=== PATIENT | female | born 1950 | race Caucasian/White ===

== ENCOUNTER 2018-02-12 12:10 | Observation (INO) | payer MEDICARE ==
[2018-02-12] MEDS ORDERED: Sodium Chloride 0.9% 1,000 ML IV STA (12:48)
[2018-02-12 12:52] VITALS: BMI 25.4
[2018-02-12 13:02] LABS: BASO # 0.1 K/uL (0.0-0.2); BASO % 0.5 % (0.0-2.0); HEMOGLOBIN 13.1 g/dL (11.0-16.0); LYMPH # 2.3 K/uL (1.0-4.3); LYMPH % 13.7 % (20.0-40.0); MEAN CORPUSCULAR HEMOGLOBIN 30.8 pg (27.0-31.0); MEAN CORPUSCULAR HGB CONC 34.6 g/dL (33.0-37.0); MEAN PLATELET VOLUME 9.5 fL (7.2-11.7); MONO # 0.8 K/uL (0.0-0.8); MONO % 4.5 % (0.0-10.0); NEUT # 13.7 K/uL (1.8-7.0); NEUT % 81.3 % (50.0-75.0); RBC 4.27 Mil/uL (3.80-5.20); RED CELL DISTRIBUTION WIDTH 13.1 % (11.5-14.5); WHITE BLOOD COUNT 16.8 K/uL (4.8-10.8)
[2018-02-12] MEDS ORDERED: Sodium Chloride 0.9% 1,000 ML ONE (13:08)
[2018-02-12 13:09] LABS: PROTHROMBIN TIME 11.7 SECONDS (9.7-12.2)
[2018-02-12 13:13] LABS: ALB/GLOB RATIO 1.2 (1.0-2.1); ALBUMIN 4.2 g/dL (3.5-5.0); CALCIUM 9.7 mg/dl (8.6-10.4)
[2018-02-12 13:22] LABS: CK-MB 0.68 ng/mL (0.0-3.38)
[2018-02-12] MEDS ORDERED: Potassium Chloride 20 mEq ER Tab PO STA (13:29)
[2018-02-12] MEDS ORDERED: Potassium Chloride 20 mEq ER Tab PO ONE ×4 (13:44→20:00)
--- NOTE | 2018-02-12 14:13 | RAD ---
PROCEDURE: CHEST RADIOGRAPH, 1 VIEW HISTORY: SOB COMPARISON: None available. FINDINGS: LUNGS: No focal consolidation or infiltrate in the lungs. PLEURA: No pneumothorax or pleural fluid seen. CARDIOVASCULAR: Normal. OSSEOUS STRUCTURES: No significant abnormalities. VISUALIZED UPPER ABDOMEN: Normal. OTHER FINDINGS: None. IMPRESSION: No evidence of focal infiltrate or consolidation in the lungs.
--- NOTE | 2018-02-12 14:29 | CT ---
PROCEDURE: CT HEAD WITHOUT CONTRAST. HISTORY: syncope, vomiting COMPARISON: None available. TECHNIQUE: Axial computed tomography images were obtained through the head/brain without intravenous contrast. Radiation dose: Total exam DLP = 775.75 mGy-cm. This CT exam was performed using one or more of the following dose reduction techniques: Automated exposure control, adjustment of the mA and/or kV according to patient size, and/or use of iterative reconstruction technique. FINDINGS: HEMORRHAGE: No intracranial hemorrhage. BRAIN: No mass effect or edema. No atrophy or chronic microvascular ischemic changes. VENTRICLES: Unremarkable. No hydrocephalus. CALVARIUM: Unremarkable. PARANASAL SINUSES: Unremarkable as visualized. No significant inflammatory changes. MASTOID AIR CELLS: Unremarkable as visualized. No inflammatory changes. OTHER FINDINGS: None. IMPRESSION: Normal CT of the Head.
[2018-02-12 15:08] LABS: SQUAMOUS EPITHIAL 6 /hpf (0-5); URINE BACTERIA RARE (<OCC); URINE BILIRUBIN NEGATIVE (NEGATIVE); URINE BLOOD NEGATIVE (NEGATIVE); URINE CLARITY Hazy (Clear); URINE COLOR Yellow (YELLOW); URINE GLUCOSE (UA) NORMAL (Normal); URINE LEUKOCYTE ESTERASE 2+ Leu/uL (Negative); URINE PROTEIN NEGATIVE (NEGATIVE); URINE UROBILINOGEN NORMAL mg/dL (0.2-1.0)
--- NOTE | 2018-02-12 15:40 | C.PDOC ---
History Of Present Illness 67-year-old female, presents to the emergency department with complaints of syncopal episode. reports patient was gardening, when he asked her to come inside their home and take a look at a bursted pipe, after which patient experienced an episode of dizziness, that was followed by a syncope. 911 was called and patient was brought to ED for further evaluation. In ER, patient is experiencing episodes of non-bloody/non-bilious vomiting. Denies any chest pain , shortness of breath, headache/injury, neck pain, or any other associated symptoms. No other complaints at this time. Chief Complaint (Nursing): Dizziness/Lightheaded History Per: Patient History/Exam Limitations: no limitations Current Symptoms Are (Timing): Still Present Past Medical History Reviewed: Historical Data, Nursing Documentation, Vital Signs Vital Signs: Last Vital Signs Temp 98.6 F 02/12/18 16:55 Pulse 103 H 02/12/18 16:55 Resp 20 02/12/18 16:55 BP 150/81 02/12/18 16:55 Pulse Ox 98 02/12/18 18:19 Family History: States: No Known Family Hx - Social History Hx Alcohol Use: No Hx Substance Use: No - Immunization History Hx Tetanus Toxoid Vaccination: No Hx Influenza Vaccination: No Hx Pneumococcal Vaccination: No Review Of Systems Constitutional: Negative for: Fever Cardiovascular: Negative for: Chest Pain, Palpitations Respiratory: Negative for: Shortness of Breath Gastrointestinal: Positive for: Nausea, Vomiting Neurological: Positive for: Dizziness, Other (syncope). Negative for: Weakness , Numbness, Headache Physical Exam - Physical Exam Appears: Non-toxic, No Acute Distress, Other (actively vomiting) Skin: Warm, Dry, No Rash Head: Normacephalic Eye(s): bilateral: PERRL Nose: Normal Oral Mucosa: Moist Lips: Normal Appearing Neck: Normal ROM Cardiovascular: Rhythm Regular, No Murmur Respiratory: Normal Breath Sounds, No Accessory Muscle Use Gastrointestinal/Abdominal: Soft, No Tenderness Extremity: Normal ROM, No Deformity, No Swelling Neurological/Psych: Oriented x3, Normal Speech ED Course And Treatment - Laboratory Results Result Diagrams: 02/12/18 12:59 02/12/18 12:59 ECG: Interpreted By Me, Viewed By Me ECG Rhythm: Sinus Rhythm Interpretation Of ECG: Prolonged QT. Rate From EC O2 Sat by Pulse Oximetry: 98 (RA) Pulse Ox Interpretation: Normal - Other Rad CXR X-Ray: Viewed By Me, Read By Radiologist Interpretation: Accession No. : [id number]. Patient Name / ID : TAMIKO FREEDMAN / [id number]. Exam Date : 02/12/2018 12:56:57 ( Approved ). Study Comment : Sex / Age : F / 67Y. Creator : Bety Patton MD. Dictator : Bety Patton MD. Molecular Pathologist : Student Affairs Vice President : Bety Patton MD. Approver2 : Report Date : 02/12/2018 14:11:38. My Comment : . PROCEDURE: CHEST RADIOGRAPH, 1 VIEW. HISTORY: SOB. COMPARISON: None available. FINDINGS: LUNGS: No focal consolidation or infiltrate in the lungs. PLEURA: No pneumothorax or pleural fluid seen. CARDIOVASCULAR: Normal. OSSEOUS STRUCTURES: No significant abnormalities. VISUALIZED UPPER ABDOMEN: Normal. OTHER FINDINGS: None. IMPRESSION: No evidence of focal infiltrate or consolidation in the lungs. - CT Scan/US CT HEAD Other Rad Studies (CT/US): Read By Radiologist, Radiology Report Reviewed CT/US Interpretation: Accession No. : [id number]. Patient Name / ID : TAMIKO FREEDMAN / [id number]. Exam Date : 02/12/2018 13:16:06 ( Approved ). Study Comment : Sex / Age : F / 67Y. Creator : Bety Patton MD. Dictator : Bety Patton MD. Molecular Pathologist : Student Affairs Vice President : Bety Patton MD. Approver2 : Report Date : 02/12/2018 14:28:34. My Comment : . PROCEDURE: CT HEAD WITHOUT CONTRAST. HISTORY: syncope, vomiting. COMPARISON: None available. TECHNIQUE: Axial computed tomography images were obtained through the head/brain without intravenous contrast. Radiation dose: Total exam DLP = 775.75 mGy-cm. This CT exam was performed using one or more of the following dose reduction techniques: Automated exposure control, adjustment of the mA and/or kV according to patient size, and/or use of iterative reconstruction technique. FINDINGS: HEMORRHAGE: No intracranial hemorrhage. BRAIN: No mass effect or edema. No atrophy or chronic microvascular ischemic changes. VENTRICLES: Unremarkable. No hydrocephalus. CALVARIUM: Unremarkable. PARANASAL SINUSES: Unremarkable as visualized. No significant inflammatory changes. MASTOID AIR CELLS: Unremarkable as visualized. No inflammatory changes. OTHER FINDINGS: None. IMPRESSION: Normal CT of the Head. Progress Note: Patients labs reveal hypokalemia. Potassium 3. Elevated BUN and WBCs, Chest XR was done, UA is positive for hyaline cast. Case was discussed with Dr Pantoja, who states to admit patient under hospitalist service. Disposition - Disposition Disposition: HOSPITALIZED Disposition Time: 15:39 Condition: FAIR - Clinical Impression Clinical Impression: Syncope, Hypokalemia - Scribe Statement The provider has reviewed the documentation as recorded by the Scribe (Corinne Berrios) All medical record entries made by the Scribe were at my direction and personally dictated by me. I have reviewed the chart and agree that the record accurately reflects my personal performance of the history, physical exam, medical decision making, and the department course for this patient. I have also personally directed, reviewed, and agree with the discharge instructions and disposition. Decision To Admit - Pt Status Changed To: Hospital Disposition Of: Observation - . Bed Request Type: Telemetry Admitting Physician: Fazal Robins Patient Diagnosis: Syncope, Hypokalemia
--- NOTE | 2018-02-12 17:18 | CP.PCM.HP ---
<Kadie Mahoney - Last Filed: 02/12/18 17:39> History of Present Illness - History of Present Illness History of Present Illness: HPI: Patient is a 67 year old female with past medical history of HTN, HLD, Rosacea, and syncopal episodes, who presents to the ED s/p syncopal episode. Patient says she was outside gardening when her asked her to come look at a leaking pipe in the cold basement. Patient says when he was showing her the pipe she started feeling dizzy so her took her back upstairs and outside to get some fresh air. Patient says she sat down on the front door step and then passed out. witnessed the syncopal episode and caught the patient so she did not hit her head. Patient was unconscious for about 5 seconds before she began to wake back up. Patient says when she woke up she had weakness and numbness in her hands up the her elbows, bilaterally. Patient says she become nauseous and had one episode of nonbloody, nonbilious vomiting when she arrived at the ED. She denies associated diaphoresis, headache, changes in vision or hearing, chest pain, palpitations, SOB, cough, abdominal pain, diarrhea, constipation, hematochezia, melena, leg pain, leg swelling, back pain , and recent travel. Patient also admits to 6 days of dysuria. She denies increased urinary frequency, fever, and chills. PMD: Dr. Pantoja PMH: HTN, HLD, Rosacea, and syncopal episodes Meds: Pravastatin 20 mg daily, Losartan 50 mg daily, Amlodipine 5 mg daily Allergies: NKDA PSH: b/l breast cyst removal, tubal ligation FH: Daughter with lupus, son with scleroderma, mother with HTN/DM/ hyperthyroidism/HLD, brother with throat CA, sister with breast CA, father with HI SH: former smoker (>40 years ago, smoked for 1 year), occasional glass of wine, denies drug use Present on Admission - Present on Admission Any Indicators Present on Admission: No Review of Systems - Review of Systems All systems: reviewed and no additional remarkable complaints except (as per HPI ) Past Patient History - Past Social History Smoking Status: Never Smoked - PSYCHIATRIC Hx Substance Use: No - SURGICAL HISTORY Hx Surgeries: Yes Other/Comment: CYST REMOVED FROM BREAST PER PATIENT - ANESTHESIA Hx Anesthesia: Yes Hx Anesthesia Reactions: No Meds Allergies/Adverse Reactions: Allergies Allergy/AdvReac Type Severity Reaction Status Date / Time No Known Allergies Allergy Verified 02/12/18 12:30 Physical Exam - Constitutional Appears: Non-toxic, No Acute Distress - Head Exam Head Exam: ATRAUMATIC, NORMAL INSPECTION, NORMOCEPHALIC - Eye Exam Eye Exam: EOMI, Normal appearance, PERRL - ENT Exam ENT Exam: Mucous Membranes Moist - Neck Exam Neck exam: Positive for: Normal Inspection - Respiratory Exam Respiratory Exam: Clear to Auscultation Bilateral, NORMAL BREATHING PATTERN - Cardiovascular Exam Cardiovascular Exam: RRR, +S1, +S2, Systolic Murmur (heard throughout all ausculatory carlson ). absent: Bradycardia, Tachycardia - GI/Abdominal Exam GI & Abdominal Exam: Normal Bowel Sounds, Soft. absent: Distended, Tenderness - Extremities Exam Extremities exam: Positive for: normal capillary refill, normal inspection, pedal pulses present. Negative for: calf tenderness, pedal edema - Back Exam Back exam: NORMAL INSPECTION - Neurological Exam Neurological exam: Alert, Normal Gait, Oriented x3 Additional comments: No motorsensory defecit - Psychiatric Exam Psychiatric exam: Normal Affect, Normal Mood - Skin Skin Exam: Dry, Intact, Normal Color, Warm Results - Vital Signs Recent Vital Signs: Last Vital Signs Temp 98.7 F 02/12/18 16:35 Pulse 105 H 02/12/18 16:35 Resp 16 02/12/18 16:35 BP 149/79 02/12/18 16:35 Pulse Ox 98 02/12/18 16:41 - Labs Result Diagrams: 02/12/18 12:59 02/12/18 12:59 Labs: Laboratory Results - last 24 hr 02/12/18 02/12/18 02/12/18 12:24 12:59 12:59 WBC 16.8 H RBC 4.27 Hgb 13.1 Hct 38.0 MCV 89.0 D MCH 30.8 MCHC 34.6 RDW 13.1 Plt Count 269 MPV 9.5 Neut % (Auto) 81.3 H Lymph % (Auto) 13.7 L Brown % (Auto) 4.5 Eos % (Auto) 0.0 Baso % (Auto) 0.5 Neut # (Auto) 13.7 H Lymph # (Auto) 2.3 Brown # (Auto) 0.8 Eos # (Auto) 0.0 Baso # (Auto) 0.1 PT 11.7 INR 1.0 APTT 29 Sodium Potassium Chloride Carbon Dioxide Anion Gap BUN Creatinine Est GFR ( Amer) Est GFR (Non-Af Amer) POC Glucose (mg/dL) 193 H Random Glucose Calcium Total Bilirubin AST ALT Alkaline Phosphatase Total Creatine Kinase CK-MB (Mass) Total Protein Albumin Globulin Albumin/Globulin Ratio Urine Color Urine Clarity Urine pH Ur Specific Wolcott Urine Protein Urine Glucose (UA) Urine Ketones Urine Blood Urine Nitrate Urine Bilirubin Urine Urobilinogen Ur Leukocyte Esterase Urine WBC (Auto) Urine RBC (Auto) Ur Squamous Epith Cells Urine Bacteria Hyaline Casts 02/12/18 02/12/18 12:59 15:09 WBC RBC Hgb Hct MCV MCH MCHC RDW Plt Count MPV Neut % (Auto) Lymph % (Auto) Brown % (Auto) Eos % (Auto) Baso % (Auto) Neut # (Auto) Lymph # (Auto) Brown # (Auto) Eos # (Auto) Baso # (Auto) PT INR APTT Sodium 140 Potassium 3.0 L Chloride 100 Carbon Dioxide 18 L Anion Gap 25 H BUN 28 H Creatinine 1.1 Est GFR ( Amer) 60 Est GFR (Non-Af Amer) 50 POC Glucose (mg/dL) Random Glucose 209 H Calcium 9.7 Total Bilirubin 1.4 H AST 33 ALT 28 Alkaline Phosphatase 98 Total Creatine Kinase 130 CK-MB (Mass) 0.68 Total Protein 7.8 Albumin 4.2 Globulin 3.6 Albumin/Globulin Ratio 1.2 Urine Color Yellow Urine Clarity Hazy Urine pH 7.0 Ur Specific [place] 1.012 Urine Protein Negative Urine Glucose (UA) Normal Urine Ketones 1+ H Urine Blood Negative Urine Nitrate Negative Urine Bilirubin Negative Urine Urobilinogen Normal Ur Leukocyte Esterase 2+ H Urine WBC (Auto) 2 Urine RBC (Auto) 2 Ur Squamous Epith Cells 6 H Urine Bacteria Rare Hyaline Casts 11-20 H Assessment & Plan - Assessment and Plan (Free Text) Plan: Syncopal episode * normotensive * H&H 13.1/38 * WBC 16.8 * CT head: negative for intracranial abnormality * CXR: negative * Dr. Valverde consulted * f/u echo * f/u carotid doppler * f/u BNP * f/u ALEXIS and EKG at 19:00 and 01:00 * f/u TSH/Free T4 * UA: +leuk esterase * f/u urine culture * f/u blood culture Meds/Fluids * Keflex 500 mg PO Q12 * 1/2 NS @ 70 cc/h Systolic ejection murmur * Dr. Valverde consulted, help appreciated * f/u echo Hyperglycemia * Glucose 209 on admission * f/u HbA1c Hypokalemia * 3.0 on admission - Replaced in ED * Given another dose of potassium on the floor * Will follow up morning labs Elevated Total Bilirubin * f/u direct bilirubin * AST/ALT WNL Hypertension * Continue home losartan 50 mg daily * Continue home amlodipine 5 mg daily Hyperlipidemia * On Pravastatin 20 mg daily at home but non formulary so will start Crestor 10 mg daily * f/u lipid panel Prophylaxis * Heparin * GI prophylaxis not indicated <Fazal Robins H - Last Filed: 02/12/18 18:08> Results - Vital Signs Recent Vital Signs: Last Vital Signs Temp 98.7 F 02/12/18 16:35 Pulse 105 H 02/12/18 16:35 Resp 16 02/12/18 16:35 BP 149/79 02/12/18 16:35 Pulse Ox 98 02/12/18 17:14 - Labs Result Diagrams: 02/12/18 12:59 02/12/18 12:59 Labs: Laboratory Results - last 24 hr 02/12/18 02/12/18 02/12/18 12:24 12:59 12:59 WBC 16.8 H RBC 4.27 Hgb 13.1 Hct 38.0 MCV 89.0 D MCH 30.8 MCHC 34.6 RDW 13.1 Plt Count 269 MPV 9.5 Neut % (Auto) 81.3 H Lymph % (Auto) 13.7 L Brown % (Auto) 4.5 Eos % (Auto) 0.0 Baso % (Auto) 0.5 Neut # (Auto) 13.7 H Lymph # (Auto) 2.3 Brown # (Auto) 0.8 Eos # (Auto) 0.0 Baso # (Auto) 0.1 PT 11.7 INR 1.0 APTT 29 Sodium Potassium Chloride Carbon Dioxide Anion Gap BUN Creatinine Est GFR ( Amer) Est GFR (Non-Af Amer) POC Glucose (mg/dL) 193 H Random Glucose Calcium Total Bilirubin AST ALT Alkaline Phosphatase Total Creatine Kinase CK-MB (Mass) Total Protein Albumin Globulin Albumin/Globulin Ratio Urine Color Urine Clarity Urine pH Ur Specific Wol[place] Urine Protein Urine Glucose (UA) Urine Ketones Urine Blood Urine Nitrate Urine Bilirubin Urine Urobilinogen Ur Leukocyte Esterase Urine WBC (Auto) Urine RBC (Auto) Ur Squamous Epith Cells Urine Bacteria Hyaline Casts 02/12/18 02/12/18 12:59 15:09 WBC RBC Hgb Hct MCV MCH MCHC RDW Plt Count MPV Neut % (Auto) Lymph % (Auto) Brown % (Auto) Eos % (Auto) Baso % (Auto) Neut # (Auto) Lymph # (Auto) Brown # (Auto) Eos # (Auto) Baso # (Auto) PT INR APTT Sodium 140 Potassium 3.0 L Chloride 100 Carbon Dioxide 18 L Anion Gap 25 H BUN 28 H Creatinine 1.1 Est GFR ( Amer) 60 Est GFR (Non-Af Amer) 50 POC Glucose (mg/dL) Random Glucose 209 H Calcium 9.7 Total Bilirubin 1.4 H AST 33 ALT 28 Alkaline Phosphatase 98 Total Creatine Kinase 130 CK-MB (Mass) 0.68 Total Protein 7.8 Albumin 4.2 Globulin 3.6 Albumin/Globulin Ratio 1.2 Urine Color Yellow Urine Clarity Hazy Urine pH 7.0 Ur Specific Wol[place] 1.012 Urine Protein Negative Urine Glucose (UA) Normal Urine Ketones 1+ H Urine Blood Negative Urine Nitrate Negative Urine Bilirubin Negative Urine Urobilinogen Normal Ur Leukocyte Esterase 2+ H Urine WBC (Auto) 2 Urine RBC (Auto) 2 Ur Squamous Epith Cells 6 H Urine Bacteria Rare Hyaline Casts 11-20 H Attending/Attestation - Attestation I have personally seen and examined this patient.: Yes I have fully participated in the care of the patient.: Yes I have reviewed all pertinent clinical information: Yes Notes (Text): 02/12/18 17:49 Medical attending: Patient was seen and examined by me. Agree with the above note by the resident The patient also had family members present as well. Patient was ok with family being present in the room. When we saw her she was not in any acute distress. She reported she felt back to her baseline self. She denied chest pain and denied shortness of breath. Also denied dizziness and headache as well. When asked if she becomes dizzy when standing she denied this saying she just walked in the ER and was ok. The family suspects possible this is stress or anxiety related that causes her to have these episodes of syncope. On exam she does have a rather loud mumur that is systolic over the LSB. Also over the aortic area as well. For now will get additional cardiac enzymes, BNP, TSH as well as and 2D echo echo in case there are mitrial or tricupsid She does have a WBC count, we will give abx for the time being but I don't get the sense this could be endocarditis - never the less we are still getting blood cultures as well as the echo. The patient will also have a cardiology evaluation as well. thank you Fazal Robins
[2018-02-12] MEDS: Sodium Chloride 0.45% 1,000 ML IV SCH (19:21)
[2018-02-12 21:14] LABS: HDL CHOLESTEROL 63 mg/dL (30-70)
[2018-02-12 21:25] LABS: CK-MB 0.73 ng/mL (0.0-3.38); LDL CHOLESTEROL 84 mg/dL (0-129)
[2018-02-13 01:49] LABS: ALB/GLOB RATIO 1.1 (1.0-2.1); ALBUMIN 3.7 g/dL (3.5-5.0); ALT/SGPT 25 U/L (9-52); AST/SGOT 30 U/L (14-36); BLOOD UREA NITROGEN 21 mg/dL (7-17); CALCIUM 8.6 mg/dl (8.6-10.4); GFR AFRICAN-AMERICAN > 60; GFR NON-AFRICAN AMERICAN > 60
[2018-02-13 01:59] LABS: CK-MB 0.73 ng/mL (0.0-3.38)
[2018-02-13] MEDS ORDERED: DiphenhydrAMINE 50 mg/ml Inj IVP ONE (03:30)
--- NOTE | 2018-02-13 06:02 | CP.PCM.CON ---
History of Present Illness - History of Present Illness History of Present Illness: Estrella For Consultation: Syncope HPI: Patient is a 67 year old female with past medical history of HTN, HLD, Rosacea, and syncopal episodes, who presents to the ED s/p syncopal episode. Patient says she was outside gardening when her asked her to come look at a leaking pipe in the cold basement. Patient says when he was showing her the pipe she started feeling dizzy so her took her back upstairs and outside to get some fresh air. Patient says she sat down on the front door step and then passed out. witnessed the syncopal episode and caught the patient so she did not hit her head. Patient was unconscious for about 5 seconds before she began to wake back up. Patient says when she woke up she had weakness and numbness in her hands up the her elbows, bilaterally. Patient says she become nauseous and had one episode of nonbloody, nonbilious vomiting when she arrived at the ED. She denies associated diaphoresis, headache, changes in vision or hearing, chest pain, palpitations, SOB, cough, abdominal pain, diarrhea, constipation, hematochezia, melena, leg pain, leg swelling, back pain , and recent travel. Patient also admits to 6 days of dysuria. She denies increased urinary frequency, fever, and chills. PMD: Dr. Pantoja PMH: HTN, HLD, Rosacea, and syncopal episodes Meds: Pravastatin 20 mg daily, Losartan 50 mg daily, Amlodipine 5 mg daily Allergies: NKDA PSH: b/l breast cyst removal, tubal ligation FH: Daughter with lupus, son with scleroderma, mother with HTN/DM/ hyperthyroidism/HLD, brother with throat CA, sister with breast CA, father with AL SH: former smoker (>40 years ago, smoked for 1 year), occasional glass of wine, denies drug use Present on Admission - Present on Admission Any Indicators Present on Admission: No Review of Systems - Review of Systems All systems: reviewed and no additional remarkable complaints except (as per HPI ) Physical Exam - Constitutional Appears: Non-toxic, No Acute Distress - Head Exam Head Exam: ATRAUMATIC, NORMAL INSPECTION, NORMOCEPHALIC - Eye Exam Eye Exam: EOMI, Normal appearance, PERRL - ENT Exam ENT Exam: Mucous Membranes Moist - Neck Exam Neck exam: Positive for: Normal Inspection - Respiratory Exam Respiratory Exam: Clear to Auscultation Bilateral, NORMAL BREATHING PATTERN - Cardiovascular Exam Cardiovascular Exam: RRR, +S1, +S2, Systolic Murmur (heard throughout all ausculatory carlson ). absent: Bradycardia, Tachycardia - GI/Abdominal Exam GI & Abdominal Exam: Normal Bowel Sounds, Soft. absent: Distended, Tenderness - Extremities Exam Extremities exam: Positive for: normal capillary refill, normal inspection, pedal pulses present. Negative for: calf tenderness, pedal edema - Back Exam Back exam: NORMAL INSPECTION - Neurological Exam Neurological exam: Alert, Normal Gait, Oriented x3 Additional comments: No motorsensory defecit - Psychiatric Exam Psychiatric exam: Normal Affect, Normal Mood - Skin Skin Exam: Dry, Intact, Normal Color, Warm Past Patient History - Past Social History Smoking Status: Never Smoked - PSYCHIATRIC Hx Substance Use: No - SURGICAL HISTORY Hx Surgeries: Yes Other/Comment: CYST REMOVED FROM BREAST PER PATIENT - ANESTHESIA Hx Anesthesia: Yes Hx Anesthesia Reactions: No Meds Allergies/Adverse Reactions: Allergies Allergy/AdvReac Type Severity Reaction Status Date / Time No Known Allergies Allergy Verified 02/12/18 12:30 - Medications Medications: Current Medications Amlodipine Besylate (Norvasc) 5 mg PO DAILY [facility] Cephalexin Monohydrate (Keflex) 500 mg PO Q12H [facility] PRN Reason: Protocol Last Admin: 02/13/18 04:26 Dose: 500 mg Heparin Sodium (Porcine) (Heparin) 5,000 units SC Q12 [facility] Last Admin: 02/12/18 22:17 Dose: 5,000 units Sodium Chloride (Sodium Chloride 0.45%) 1,000 mls @ 70 mls/hr IV .[id number] [facility] Last Admin: 02/12/18 19:21 Dose: 70 mls/hr Losartan Potassium (Cozaar) 50 mg PO DAILY [facility] Rosuvastatin Calcium (Crestor) 10 mg PO HS [facility] Last Admin: 02/12/18 22:16 Dose: Not Given Results - Vital Signs Recent Vital Signs: Last Vital Signs Temp 98.1 F 02/13/18 03:28 Pulse 81 02/13/18 04:06 Resp 20 02/13/18 03:28 BP 130/79 02/13/18 03:28 Pulse Ox 98 02/13/18 03:28 - Labs Result Diagrams: 02/12/18 12:59 02/13/18 01:32 Labs: Laboratory Results - last 24 hr 02/12/18 02/12/18 02/12/18 12:24 12:59 12:59 WBC 16.8 H RBC 4.27 Hgb 13.1 Hct 38.0 MCV 89.0 D MCH 30.8 MCHC 34.6 RDW 13.1 Plt Count 269 MPV 9.5 Neut % (Auto) 81.3 H Lymph % (Auto) 13.7 L [place] % (Auto) 4.5 Eos % (Auto) 0.0 Baso % (Auto) 0.5 Neut # (Auto) 13.7 H Lymph # (Auto) 2.3 [place] # (Auto) 0.8 Eos # (Auto) 0.0 Baso # (Auto) 0.1 PT 11.7 INR 1.0 APTT 29 Sodium Potassium Chloride Carbon Dioxide Anion Gap BUN Creatinine Est GFR ( Amer) Est GFR (Non-Af Amer) POC Glucose (mg/dL) 193 H Random Glucose Calcium Phosphorus Magnesium Total Bilirubin AST ALT Alkaline Phosphatase Total Creatine Kinase CK-MB (Mass) Troponin I NT-Pro-B Natriuret Pep Total Protein Albumin Globulin Albumin/Globulin Ratio Triglycerides Cholesterol LDL Cholesterol Direct HDL Cholesterol Urine Color Urine Clarity Urine pH Ur Specific [place] Urine Protein Urine Glucose (UA) Urine Ketones Urine Blood Urine Nitrate Urine Bilirubin Urine Urobilinogen Ur Leukocyte Esterase Urine WBC (Auto) Urine RBC (Auto) Ur Squamous Epith Cells Urine Bacteria Hyaline Casts 02/12/18 02/12/18 02/12/18 12:59 15:09 20:35 WBC RBC Hgb Hct MCV MCH MCHC RDW Plt Count MPV Neut % (Auto) Lymph % (Auto) [place] % (Auto) Eos % (Auto) Baso % (Auto) Neut # (Auto) Lymph # (Auto) [place] # (Auto) Eos # (Auto) Baso # (Auto) PT INR APTT Sodium 140 Potassium 3.0 L Chloride 100 Carbon Dioxide 18 L Anion Gap 25 H BUN 28 H Creatinine 1.1 Est GFR ( Amer) 60 Est GFR (Non-Af Amer) 50 POC Glucose (mg/dL) Random Glucose 209 H Calcium 9.7 Phosphorus Magnesium 1.7 Total Bilirubin 1.4 H AST 33 ALT 28 Alkaline Phosphatase 98 Total Creatine Kinase 130 CK-MB (Mass) 0.68 Troponin I NT-Pro-B Natriuret Pep 234 Total Protein 7.8 Albumin 4.2 Globulin 3.6 Albumin/Globulin Ratio 1.2 Triglycerides Cholesterol LDL Cholesterol Direct HDL Cholesterol Urine Color Yellow Urine Clarity Hazy Urine pH 7.0 Ur Specific [place] 1.012 Urine Protein Negative Urine Glucose (UA) Normal Urine Ketones 1+ H Urine Blood Negative Urine Nitrate Negative Urine Bilirubin Negative Urine Urobilinogen Normal Ur Leukocyte Esterase 2+ H Urine WBC (Auto) 2 Urine RBC (Auto) 2 Ur Squamous Epith Cells 6 H Urine Bacteria Rare Hyaline Casts 11-20 H 02/12/18 02/13/18 02/13/18 20:35 01:32 01:32 WBC RBC Hgb Hct MCV MCH MCHC RDW Plt Count MPV Neut % (Auto) Lymph % (Auto) [place] % (Auto) Eos % (Auto) Baso % (Auto) Neut # (Auto) Lymph # (Auto) [place] # (Auto) Eos # (Auto) Baso # (Auto) PT INR APTT Sodium 143 Potassium 4.1 Chloride 105 Carbon Dioxide 26 Anion Gap 15 BUN 21 H Creatinine 0.9 Est GFR ( Amer) > 60 Est GFR (Non-Af Amer) > 60 POC Glucose (mg/dL) Random Glucose 95 Calcium 8.6 Phosphorus 2.7 Magnesium Total Bilirubin 1.0 AST 30 ALT 25 Alkaline Phosphatase 71 Total Creatine Kinase 112 116 CK-MB (Mass) 0.73 0.73 Troponin I < 0.0120 < 0.0120 NT-Pro-B Natriuret Pep Total Protein 7.1 Albumin 3.7 Globulin 3.4 Albumin/Globulin Ratio 1.1 Triglycerides 47 D Cholesterol 158 LDL Cholesterol Direct 84 HDL Cholesterol 63 Urine Color Urine Clarity Urine pH Ur Specific [place] Urine Protein Urine Glucose (UA) Urine Ketones Urine Blood Urine Nitrate Urine Bilirubin Urine Urobilinogen Ur Leukocyte Esterase Urine WBC (Auto) Urine RBC (Auto) Ur Squamous Epith Cells Urine Bacteria Hyaline Casts Assessment & Plan - Assessment and Plan (Free Text) Assessment: 1. Syncope x 2 Cardiac (Systolic murmur) Vs. Arrhythmias (Low K) Check ECHO Telemonitor Carotid Neuro consult If the work up negative will consider Tilt table test Will follow
[2018-02-13] MEDS: Sodium Chloride 0.45% 1,000 ML IV SCH (07:20)
--- NOTE | 2018-02-13 08:39 | CP.PCM.PN ---
<DenzelKadie - Last Filed: 02/13/18 11:27> Subjective - Date & Time of Evaluation Date of Evaluation: 02/13/18 Time of Evaluation: 08:34 - Subjective Subjective: Patient seen and examined at bedside. Patient resting comfortably in bed with no new complaints at this time. Patient says overnight she had some pain in her left arm where the IV was so she asked for the nurse to stop the fluids. She otherwise feels well and denies fever, chills, headache, dizziness, chest pain, SOB, palpitations, cough, abdominal pain, n/v/d/c, and lower extremity pain/ swelling. Per nursing, patient had a 5 beat run of V Tach overnight but was sleeping when it happened and did not show any signs of discomfort. Objective - Vital Signs/Intake and Output Vital Signs (last 24 hours): Temp Pulse Resp BP Pulse Ox 98.5 F 87 20 114/65 99 02/13/18 08:17 02/13/18 08:17 02/13/18 08:17 02/13/18 08:17 02/13/18 08:17 Intake and Output: 02/13/18 02/13/18 06:59 18:59 Intake Total 680 Balance 680 - Medications Medications: Current Medications Amlodipine Besylate (Norvasc) 5 mg PO DAILY [facility] Cephalexin Monohydrate (Keflex) 500 mg PO Q12H [facility] PRN Reason: Protocol Last Admin: 02/13/18 04:26 Dose: 500 mg Heparin Sodium (Porcine) (Heparin) 5,000 units SC Q12 [facility] Last Admin: 02/12/18 22:17 Dose: 5,000 units Losartan Potassium (Cozaar) 50 mg PO DAILY [facility] Rosuvastatin Calcium (Crestor) 10 mg PO HS [facility] Last Admin: 02/12/18 22:16 Dose: Not Given - Labs Labs: 02/12/18 12:59 02/13/18 01:32 PT 11.7 SECONDS (9.7-12.2) 02/12/18 12:59 INR 1.0 02/12/18 12:59 APTT 29 SECONDS (21-34) 02/12/18 12:59 - Constitutional Appears: Non-toxic, No Acute Distress - Head Exam Head Exam: ATRAUMATIC, NORMAL INSPECTION, NORMOCEPHALIC - Eye Exam Eye Exam: EOMI, Normal appearance, PERRL - ENT Exam ENT Exam: Mucous Membranes Moist - Respiratory Exam Respiratory Exam: Clear to Ausculation Bilateral, NORMAL BREATHING PATTERN - Cardiovascular Exam Cardiovascular Exam: REGULAR RHYTHM, +S1, +S2, Murmur (SAMANTHA heard best at the right 2nd intercostal space ) - GI/Abdominal Exam GI & Abdominal Exam: Soft, Normal Bowel Sounds. absent: Distended, Tenderness - Extremities Exam Extremities Exam: Normal Inspection. absent: Calf Tenderness, Pedal Edema - Neurological Exam Neurological Exam: Alert, Awake, Oriented x3 - Psychiatric Exam Psychiatric exam: Normal Affect, Normal Mood - Skin Skin Exam: Dry, Intact, Normal Color, Warm Assessment and Plan - Assessment and Plan (Free Text) Plan: Syncopal episode * f/u orthostatic vital signs * H&H stable * Leukocytosis & UA with +Leuk esterase * f/u urine culture * f/u blood cultures * CT head: negative for intracranial abnormality * CXR: negative * Dr. Valverde consulted * f/u echo * f/u carotid doppler * BNP 234 * ALEXIS negative x3 * TSH 2.40, Free T4 1.06 * f/u AM cortisol * Dr. Min consulted (neuro), help appreciated * f/u EEG Meds * Keflex 500 mg PO Q12 Systolic ejection murmur * Dr. Valverde consulted, help appreciated * f/u echo Hyperglycemia * Glucose 209 on admission * HbA1c 5.7 Hypokalemia - resolved * Monitor and replace as needed Elevated Total Bilirubin - resolved * direct bilirubin 0.3 * AST/ALT WNL Hypertension * Continue home losartan 50 mg daily * Continue home amlodipine 5 mg daily Hyperlipidemia * On Pravastatin 20 mg daily at home but non formulary so will start Crestor 10 mg daily * Lipid panel: Trig 47, Chol 158, LDL 84, HDL 63 Prophylaxis * Heparin * GI prophylaxis not indicated <Fazal Robins - Last Filed: 02/13/18 17:51> Objective - Vital Signs/Intake and Output Vital Signs (last 24 hours): Temp Pulse Resp BP Pulse Ox 98.1 F 80 18 118/74 97 02/13/18 15:31 02/13/18 15:31 18 15:31 02/13/18 15:31 02/13/18 15:31 Intake and Output: 04/15/18 04/15/18 06:59 18:59 Intake Total 680 800 Balance 680 800 - Medications Medications: Current Medications Amlodipine Besylate (Norvasc) 5 mg PO DAILY [facility] Last Admin: 02/13/18 10:38 Dose: 5 mg Cephalexin Monohydrate (Keflex) 500 mg PO Q12H [facility] PRN Reason: Protocol Last Admin: 02/13/18 04:26 Dose: 500 mg Heparin Sodium (Porcine) (Heparin) 5,000 units SC Q12 [facility] Last Admin: 02/13/18 10:46 Dose: 5,000 units Losartan Potassium (Cozaar) 50 mg PO DAILY [facility] Last Admin: 02/13/18 10:38 Dose: 50 mg Rosuvastatin Calcium (Crestor) 10 mg PO HS [facility] Last Admin: 02/12/18 22:16 Dose: Not Given Saccharomyces Boulardii (Florastor) 250 mg PO BID [facility] Last Admin: 02/13/18 10:38 Dose: 250 mg - Labs Labs: 02/13/18 08:42 02/13/18 08:42 PT 11.7 SECONDS (9.7-12.2) 02/12/18 12:59 INR 1.0 02/12/18 12:59 APTT 29 SECONDS (21-34) 02/12/18 12:59 Attending/Attestation - Attestation I have personally seen and examined this patient.: Yes I have fully participated in the care of the patient.: Yes I have reviewed all pertinent clinical information, including history, physical exam and plan: Yes Notes (Text): Medical attending: Patient was seen and examined by me as well with the medical technologist. Agree with the above note by the resident The patient was reporting to us that she felt well. She was able to walk with us in the hallway and on telemtry she was NSR in the high 90s when walking. Overnight she did have one episode of a 5 beat run of VTAC, other than this she was NSR throughout the night. She did not get dizzy when we stood her up to walk with us. She said she felt fine. So she did not have an echo yet and still pending the carotid doppler The K was corrected. She previously had a WBC of 16 and this has decreased to 11 today. Cultures are pending. thank you Fazal Robins 02/13/18 17:51
[2018-02-13 09:00] LABS: BASO % 0.4 % (0.0-2.0); EOS % 0.1 % (0.0-4.0); HEMOGLOBIN 11.8 g/dL (11.0-16.0); LYMPH # 2.1 K/uL (1.0-4.3); LYMPH % 18.5 % (20.0-40.0); MEAN CELL VOLUME 90.2 fL (81.0-99.0); MEAN CORPUSCULAR HGB CONC 34.3 g/dL (33.0-37.0); MONO # 0.5 K/uL (0.0-0.8); MONO % 4.9 % (0.0-10.0); NEUT # 8.4 K/uL (1.8-7.0); NEUT % 76.1 % (50.0-75.0); NRBC % 0.1 % (0.0-2.0); RBC 3.83 Mil/uL (3.80-5.20); RED CELL DISTRIBUTION WIDTH 13.3 % (11.5-14.5); WHITE BLOOD COUNT 11.1 K/uL (4.8-10.8)
[2018-02-13 09:11] LABS: ALB/GLOB RATIO 1.1 (1.0-2.1); ALBUMIN 3.5 g/dL (3.5-5.0); ALT/SGPT 23 U/L (9-52); AST/SGOT 28 U/L (14-36); BILIRUBIN,DIRECT 0.3 mg/dL (0.0-0.4); BLOOD UREA NITROGEN 15 mg/dL (7-17); CALCIUM 8.3 mg/dl (8.6-10.4); GFR AFRICAN-AMERICAN > 60; GFR NON-AFRICAN AMERICAN > 60
[2018-02-13] MEDS: Saccharomyces Boulardi 250 mg Cap PO SCH ×2 (10:38→18:53)
[2018-02-13] MEDS: PRAVASTATIN 20 MG PO SCH (21:36)
--- NOTE | 2018-02-13 22:26 | CP.PCM.PN ---
Subjective - Date & Time of Evaluation Date of Evaluation: 02/13/18 Time of Evaluation: 17:20 - Subjective Subjective: Patient seen and evaluated Had an episode of non sustained V Tch run No chets pain or dyspnea Review of Systems - Review of Systems All systems: reviewed and no additional remarkable complaints except (as per HPI ) Physical Exam - Constitutional Appears: Non-toxic, No Acute Distress - Head Exam Head Exam: ATRAUMATIC, NORMAL INSPECTION, NORMOCEPHALIC - Eye Exam Eye Exam: EOMI, Normal appearance, PERRL - ENT Exam ENT Exam: Mucous Membranes Moist - Neck Exam Neck exam: Positive for: Normal Inspection - Respiratory Exam Respiratory Exam: Clear to Auscultation Bilateral, NORMAL BREATHING PATTERN - Cardiovascular Exam Cardiovascular Exam: RRR, +S1, +S2, Systolic Murmur (heard throughout all ausculatory carlson ). absent: Bradycardia, Tachycardia - GI/Abdominal Exam GI & Abdominal Exam: Normal Bowel Sounds, Soft. absent: Distended, Tenderness - Extremities Exam Extremities exam: Positive for: normal capillary refill, normal inspection, pedal pulses present. Negative for: calf tenderness, pedal edema - Back Exam Back exam: NORMAL INSPECTION - Neurological Exam Neurological exam: Alert, Normal Gait, Oriented x3 Additional comments: No motorsensory defecit - Psychiatric Exam Psychiatric exam: Normal Affect, Normal Mood - Skin Skin Exam: Dry, Intact, Normal Color, Warm Objective - Vital Signs/Intake and Output Vital Signs (last 24 hours): Temp Pulse Resp BP Pulse Ox 98.1 F 80 18 118/74 97 02/13/18 15:31 02/13/18 15:31 02/13/18 15:31 02/13/18 15:31 02/13/18 15:31 Intake and Output: 02/13/18 02/14/18 18:59 06:59 Intake Total 800 Balance 800 - Medications Medications: Current Medications Amlodipine Besylate (Norvasc) 5 mg PO DAILY [facility] Last Admin: 02/13/18 10:38 Dose: 5 mg Cephalexin Monohydrate (Keflex) 500 mg PO Q12H [facility] PRN Reason: Protocol Last Admin: 02/13/18 16:53 Dose: 500 mg Heparin Sodium (Porcine) (Heparin) 5,000 units SC Q12 [facility] Last Admin: 02/13/18 21:36 Dose: 5,000 units Home Med (Patient's Own Medication) 1 tab PO HS [facility] Last Admin: 02/13/18 21:36 Dose: 1 tab Losartan Potassium (Cozaar) 50 mg PO DAILY [facility] Last Admin: 02/13/18 10:38 Dose: 50 mg Rosuvastatin Calcium (Crestor) 10 mg PO HS [facility] Last Admin: 02/13/18 21:37 Dose: Not Given Saccharomyces Boulardii (Florastor) 250 mg PO BID [facility] Last Admin: 02/13/18 18:53 Dose: 250 mg - Labs Labs: 02/13/18 08:42 02/13/18 08:42 PT 11.7 SECONDS (9.7-12.2) 02/12/18 12:59 INR 1.0 02/12/18 12:59 APTT 29 SECONDS (21-34) 02/12/18 12:59 Assessment and Plan - Assessment and Plan (Free Text) Assessment: Syncopal episode * ECHO and Carotids Systolic ejection murmur * f/u echo Hyperglycemia * Glucose 209 on admission * HbA1c 5.7 Hypokalemia - resolved * Monitor and replace as needed Elevated Total Bilirubin - resolved * direct bilirubin 0.3 * AST/ALT WNL Hypertension * Continue home losartan 50 mg daily * Continue home amlodipine 5 mg daily Hyperlipidemia * On Pravastatin 20 mg daily at home but non formulary so will start Crestor 10 mg daily * Lipid panel: Trig 47, Chol 158, LDL 84, HDL 63 Prophylaxis * Heparin * GI prophylaxis not indicated
--- NOTE | 2018-02-14 02:08 | CON ---
DATE: REASON FOR CONSULTATION: Syncope. HISTORY: The patient is a 67-year-old pleasant lady, right-handed, with past medical history of hypertension, hyperlipidemia, rosacea, and syncopal episode. The patient was admitted because of an episode of syncope. The patient stated that while she was gardening, the called her to the basement because there was leakage from the pipe in the basement and when she came, she was upset, and then, she collapsed and lost consciousness after she was feeling shortness of breath, and she got out of the house, and at the doorsteps, she lost her conscious, and approximately less than one minute, although the patient states it was 20 minutes, the patient woke up without confusion, no urinary incontinence, but the patient when she woke up, she was complaining of some numbness and tingling of the hands and stiffness of the hands, no nausea, no vomiting. The patient denies chest pain, palpitations, shortness of breath, before or after. The patient denies sweating, diaphoresis. The patient stated that every time she hears a bad news, she gets loss of consciousness. Once when her grandchild had seizure, she had loss of consciousness, and once also when her son was sick, she had an episode of syncope. There is no history of seizures as a child, had trauma in the past. PAST MEDICAL HISTORY: As mentioned above. SOCIAL HISTORY: Denies smoker, ethanol abuser. ALLERGIES: NO KNOWN ALLERGIC RASH. MEDICATIONS: Pravastatin, losartan, amlodipine. PHYSICAL EXAMINATION: VITAL SIGNS: The patient's blood pressure was recently changed. REVIEW OF SYSTEMS: As per H and P, and ER note, reviewed. PHYSICAL EXAMINATION: VITAL SIGNS: Blood pressure 123/72, pulse 92, respirations 20, temperature afebrile. MENTAL STATUS: The patient is alert, awake, oriented x3. Normal naming, repetition, and comprehension. No nausea, no apraxia. No right or left confusion or finger agnosia. Able to spell forward and backward. CRANIAL NERVES: Pupils symmetrically 2 mm, bilaterally reactive. No facial asymmetry. No field defect. V1 to V3 intact and midline gag intact. Accessory nerve intact. No lymph nodes in the cervical region or thyroid nodules on examination. MOTOR: Upper extremities, deltoid, elbow special events manager 5/5; lower extremities, hip flexion, knee flexion extension, ankle dorsiflexion, plantar extension 5/5. Deep tendon reflexes 2 in upper extremities and lower extremities. Plantar reflexion on both sides. Sensory position intact. Coordination, [id number] intact. CAT scan of the brain does not reveal acute findings. I have reviewed the CAT scan. LABS: Reviewed. 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 Neuro ferguson with EEG to rule out seizures and carotid Dopplers for carotid stenosis, thyroid profile, and Cardiology is on the case. Neurowise, no further workup recommended. The patient can follow up with Dr. Min after discharge. The patient will be followed by Dr. Min tomorrow morning. Above discussed with the daughter and son at bedside. All their questions and concerns were answered. Thank you for consultation. Wesley Mandel MD
[2018-02-14 06:48] LABS: BASO # 0.1 K/uL (0.0-0.2); BASO % 0.7 % (0.0-2.0); EOS # 0.2 K/uL (0.0-0.7); EOS % 2.4 % (0.0-4.0); HEMOGLOBIN 12.4 g/dL (11.0-16.0); LYMPH # 2.4 K/uL (1.0-4.3); LYMPH % 29.1 % (20.0-40.0); MEAN CELL VOLUME 91.2 fL (81.0-99.0); MEAN CORPUSCULAR HEMOGLOBIN 31.1 pg (27.0-31.0); MEAN CORPUSCULAR HGB CONC 34.1 g/dL (33.0-37.0); MEAN PLATELET VOLUME 8.7 fL (7.2-11.7); MONO # 0.7 K/uL (0.0-0.8); NEUT % 59.8 % (50.0-75.0); RBC 3.98 Mil/uL (3.80-5.20); RED CELL DISTRIBUTION WIDTH 13.8 % (11.5-14.5); WHITE BLOOD COUNT 8.3 K/uL (4.8-10.8)
[2018-02-14 07:46] LABS: ALB/GLOB RATIO 1.1 (1.0-2.1); ALBUMIN 3.5 g/dL (3.5-5.0); ALT/SGPT 20 U/L (9-52); AST/SGOT 27 U/L (14-36); BLOOD UREA NITROGEN 19 mg/dL (7-17); CALCIUM 8.5 mg/dl (8.6-10.4); GFR AFRICAN-AMERICAN > 60; GFR NON-AFRICAN AMERICAN > 60
[2018-02-14] MEDS: Saccharomyces Boulardi 250 mg Cap PO SCH ×2 (09:29→17:33)
--- NOTE | 2018-02-14 09:58 | CP.PCM.PN ---
Addendum entered and electronically signed by Norberto Benjamin DO 02/14/18 17:55: ECHO read with Dr. Valverde showing trace , no wall motion abnormalites. EF WNL. Pt NPO past Midnight except medications for tilt table test. Original Note: <Norberto Benjamin - Last Filed: 02/14/18 12:51> Subjective - Date & Time of Evaluation Date of Evaluation: 02/14/18 Time of Evaluation: 09:53 - Subjective Subjective: PGY-[address] Valverde's Cardio service: Pt seen and examined at bedside. Nursing reports no acute events overnight. Patient found resting comfortably in bed. Denies chest pain, palpitations, SOB this AM. Reports that she has been able to walk around nurses station without difficulty. Objective - Vital Signs/Intake and Output Vital Signs (last 24 hours): Temp Pulse Resp BP Pulse Ox 98.0 F 72 20 114/71 98 02/14/18 07:52 02/14/18 07:52 02/14/18 07:52 02/14/18 07:52 02/14/18 07:52 - Medications Medications: Current Medications Amlodipine Besylate (Norvasc) 5 mg PO DAILY [facility] Last Admin: 02/14/18 09:29 Dose: 5 mg Cephalexin Monohydrate (Keflex) 500 mg PO Q12 [facility] PRN Reason: Protocol Last Admin: 02/14/18 09:30 Dose: 500 mg Heparin Sodium (Porcine) (Heparin) 5,000 units SC Q12 [facility] Last Admin: 02/14/18 09:29 Dose: 5,000 units Home Med (Patient's Own Medication) 1 tab PO HS [facility] Last Admin: 02/13/18 21:36 Dose: 1 tab Losartan Potassium (Cozaar) 50 mg PO DAILY [facility] Last Admin: 02/14/18 09:29 Dose: 50 mg Saccharomyces Boulardii (Florastor) 250 mg PO BID [facility] Last Admin: 02/14/18 09:29 Dose: 250 mg - Labs Labs: 02/14/18 06:38 02/14/18 06:38 PT 11.7 SECONDS (9.7-12.2) 02/12/18 12:59 INR 1.0 02/12/18 12:59 APTT 29 SECONDS (21-34) 02/12/18 12:59 - Additional Findings Additional findings: - Constitutional Appears: Non-toxic, No Acute Distress - Head Exam Head Exam: ATRAUMATIC, NORMAL INSPECTION, NORMOCEPHALIC - Eye Exam Eye Exam: EOMI, Normal appearance, PERRL - ENT Exam ENT Exam: Mucous Membranes Moist - Respiratory Exam Respiratory Exam: Clear to Ausculation Bilateral, NORMAL BREATHING PATTERN - Cardiovascular Exam Cardiovascular Exam: REGULAR RHYTHM, +S1, +S2, Murmur (right 2nd intercostal space ) - GI/Abdominal Exam GI & Abdominal Exam: Soft, Normal Bowel Sounds. absent: Distended, Tenderness - Extremities Exam Extremities Exam: Normal Inspection. absent: Calf Tenderness, Pedal Edema - Neurological Exam Neurological Exam: Alert, Awake, Oriented x3 - Psychiatric Exam Psychiatric exam: Normal Affect, Normal Mood - Skin Skin Exam: Dry, Intact, Normal Color, Warm Assessment and Plan - Assessment and Plan (Free Text) Plan: Syncopal Events Admitted to [facility] Etiology: Cardiac (Systolic murmur) Vs. Arrhythmias (Low K) Orthostatic Vitals WNL ALEXIS negative x 3 BNP 234 TSH 2.40, Free T4 1.04 f/u ECHO, Carotid doppler studies Neuro consult, Dr. Min on board - syncopal etiology believed to be due to panic attacks - EEG and MRI ordered If the work up negative will consider Tilt table test Hypertension Well controlled Continue home losartan 50 mg daily Continue home amlodipine 5 mg daily Hyperlipidemia Crestor 10 mg daily Lipid panel: Trig 47, Chol 158, LDL 84, HDL 63 Norberto Benjamin PGY-2 D/W Dr Valverde <Germán Valverde - Last Filed: 02/14/18 22:09> Objective - Vital Signs/Intake and Output Vital Signs (last 24 hours): Temp Pulse Resp BP Pulse Ox 98.5 F 73 18 111/55 L 100 02/14/18 15:25 02/14/18 16:37 02/14/18 15:25 02/14/18 15:25 02/14/18 15:25 - Medications Medications: Current Medications Amlodipine Besylate (Norvasc) 5 mg PO DAILY [facility] Last Admin: 02/14/18 09:29 Dose: 5 mg Cephalexin Monohydrate (Keflex) 500 mg PO Q12 [facility] PRN Reason: Protocol Last Admin: 02/14/18 21:23 Dose: 500 mg Heparin Sodium (Porcine) (Heparin) 5,000 units SC Q12 [facility] Last Admin: 02/14/18 21:23 Dose: 5,000 units Home Med (Patient's Own Medication) 1 tab PO HS [facility] Last Admin: 02/14/18 21:23 Dose: 1 tab Losartan Potassium (Cozaar) 50 mg PO DAILY [facility] Last Admin: 02/14/18 09:29 Dose: 50 mg Saccharomyces Boulardii (Florastor) 250 mg PO BID [facility] Last Admin: 02/14/18 17:33 Dose: 250 mg - Labs Labs: 02/14/18 06:38 02/14/18 06:38 PT 11.7 SECONDS (9.7-12.2) 02/12/18 12:59 INR 1.0 02/12/18 12:59 APTT 29 SECONDS (21-34) 02/12/18 12:59 Assessment and Plan - Assessment and Plan (Free Text) Plan: Patient seen and evaluated personally by me Plan of care d/w the medical clerical assistant and as documented
--- NOTE | 2018-02-14 10:05 | CP.PCM.PN ---
<Kadie Mahoney - Last Filed: 02/14/18 13:54> Subjective - Date & Time of Evaluation Date of Evaluation: 02/14/18 Time of Evaluation: 07:15 - Subjective Subjective: Patient seen and examined at bedside. Patient resting comfortably in bed with no new complaints at this time. Patient brought her pravastatin from home stating she would rather take that than the Crestor, which is fine. Patient has been up walking around without problems. Patient denies fever, chills, headache , dizziness, chest pain, palpitations, SOB, abdominal pain, n/v/d/c, calf pain, and LE edema. Objective - Vital Signs/Intake and Output Vital Signs (last 24 hours): Temp Pulse Resp BP Pulse Ox 98.0 F 72 20 114/71 98 02/14/18 07:52 02/14/18 07:52 02/14/18 07:52 02/14/18 07:52 02/14/18 07:52 - Medications Medications: Current Medications Amlodipine Besylate (Norvasc) 5 mg PO DAILY [facility] Last Admin: 02/14/18 09:29 Dose: 5 mg Cephalexin Monohydrate (Keflex) 500 mg PO Q12 [facility] PRN Reason: Protocol Last Admin: 02/14/18 09:30 Dose: 500 mg Heparin Sodium (Porcine) (Heparin) 5,000 units SC Q12 [facility] Last Admin: 02/14/18 09:29 Dose: 5,000 units Home Med (Patient's Own Medication) 1 tab PO HS [facility] Last Admin: 02/13/18 21:36 Dose: 1 tab Losartan Potassium (Cozaar) 50 mg PO DAILY [facility] Last Admin: 02/14/18 09:29 Dose: 50 mg Saccharomyces Boulardii (Florastor) 250 mg PO BID [facility] Last Admin: 02/14/18 09:29 Dose: 250 mg - Labs Labs: 02/14/18 06:38 02/14/18 06:38 PT 11.7 SECONDS (9.7-12.2) 02/12/18 12:59 INR 1.0 02/12/18 12:59 APTT 29 SECONDS (21-34) 02/12/18 12:59 - Additional Findings Additional findings: - Constitutional Appears: Non-toxic, No Acute Distress - Head Exam Head Exam: ATRAUMATIC, NORMAL INSPECTION, NORMOCEPHALIC - Eye Exam Eye Exam: EOMI, Normal appearance, PERRL - ENT Exam ENT Exam: Mucous Membranes Moist - Respiratory Exam Respiratory Exam: Clear to Ausculation Bilateral, NORMAL BREATHING PATTERN - Cardiovascular Exam Cardiovascular Exam: REGULAR RHYTHM, +S1, +S2, Murmur (SAMANTHA heard best at the right 2nd intercostal space ) - GI/Abdominal Exam GI & Abdominal Exam: Soft, Normal Bowel Sounds. absent: Distended, Tenderness - Extremities Exam Extremities Exam: Normal Inspection. absent: Calf Tenderness, Pedal Edema - Neurological Exam Neurological Exam: Alert, Awake, Oriented x3 - Psychiatric Exam Psychiatric exam: Normal Affect, Normal Mood - Skin Skin Exam: Dry, Intact, Normal Color, Warm Assessment and Plan - Assessment and Plan (Free Text) Plan: Syncopal episode * Orthostatic BP within normal limits; no change in SBP > 20 or DBP >10 * H&H stable * Leukocytosis & UA with +Leuk esterase * urine culture: called micro and likely contaminated; will repeat * blood cultures negative * CT head: negative for intracranial abnormality * CXR: negative * Dr. Valverde consulted * Having 4-5 beat runs of VTach overnight on and * f/u echo * f/u carotid doppler * BNP 234 * ALEXIS negative x3 * TSH 2.40, Free T4 1.06 * AM cortisol: 10.2 * Dr. Min consulted (neuro), help appreciated * f/u EEG Meds * Keflex 500 mg PO Q12 Systolic ejection murmur * Dr. Valverde consulted, help appreciated * f/u echo Hyperglycemia * Glucose 209 on admission * HbA1c 5.7 Hypokalemia - resolved * Monitor and replace as needed Elevated Total Bilirubin - resolved * direct bilirubin 0.3 * AST/ALT WNL Hypertension * Continue home losartan 50 mg daily * Continue home amlodipine 5 mg daily Hyperlipidemia * On Pravastatin 20 mg daily at home but non formulary so will start Crestor 10 mg daily * Lipid panel: Trig 47, Chol 158, LDL 84, HDL 63 Prophylaxis * Heparin * GI prophylaxis not indicated <Fazal Robins - Last Filed: 02/14/18 15:05> Objective - Vital Signs/Intake and Output Vital Signs (last 24 hours): Temp Pulse Resp BP Pulse Ox 98.0 F 72 20 114/71 98 02/14/18 07:52 02/14/18 07:52 02/14/18 07:52 02/14/18 07:52 02/14/18 07:52 - Medications Medications: Current Medications Amlodipine Besylate (Norvasc) 5 mg PO DAILY [facility] Last Admin: 02/14/18 09:29 Dose: 5 mg Cephalexin Monohydrate (Keflex) 500 mg PO Q12 [facility] PRN Reason: Protocol Last Admin: 02/14/18 09:30 Dose: 500 mg Heparin Sodium (Porcine) (Heparin) 5,000 units SC Q12 [facility] Last Admin: 02/14/18 09:29 Dose: 5,000 units Home Med (Patient's Own Medication) 1 tab PO HS [facility] Last Admin: 02/13/18 21:36 Dose: 1 tab Losartan Potassium (Cozaar) 50 mg PO DAILY [facility] Last Admin: 02/14/18 09:29 Dose: 50 mg Saccharomyces Boulardii (Florastor) 250 mg PO BID [facility] Last Admin: 02/14/18 09:29 Dose: 250 mg - Labs Labs: 02/14/18 06:38 02/14/18 06:38 PT 11.7 SECONDS (9.7-12.2) 02/12/18 12:59 INR 1.0 02/12/18 12:59 APTT 29 SECONDS (21-34) 02/12/18 12:59 Attending/Attestation - Attestation I have personally seen and examined this patient.: Yes I have fully participated in the care of the patient.: Yes I have reviewed all pertinent clinical information, including history, physical exam and plan: Yes Notes (Text): 02/14/18 15:04 Medical attending: Patient was seen and examined by me, agrees the above note by the medical surgical tech. The patient's family member was also present in the room as well. The patient was okay with this. The patient looks quite well. She was not in any acute distress she was ambulating in her room. Earlier in the morning she underwent a 2-D echo. And also an EEG. On exam today very interesting interestingly she doesn't have a murmur that I was able to hear lung today. We first saw her in the emergency room she did have this murmur. Her antibiotics has been changed over to Keflex orally. Her white blood cell count has decreased to 8.3. On review of telemetry she didn't have any runs of V. tach she did the previous night. Her cardiac enzymes have been negative 3 We also check orthostatic blood pressures and these were stable. thank you Fazal Robins
--- NOTE | 2018-02-14 12:37 | PN ---
DATE: NEUROLOGICAL PROBLEM: Recurrent syncopal attack related to her emotional disturbances (panic attack). The patient was seen by Dr. Mandel over the weekend. His workup is greatly appreciated. The patient did have followup with body component engineer as well for her syncopal attack. Her examination which is unchanged to compare with Dr. Mandel's consultation. The patient is scheduled to have electroencephalogram and MRI of the brain including carotid Doppler. We will follow the result. The patient will definitely need ambulatory video electroencephalogram, which can be done as outpatient to further study her electrographic activities related to her current problem. No further workup is needed besides what is requested. Continue the present management. Jimi Min MD
[2018-02-14] MEDS: PRAVASTATIN 20 MG PO SCH (21:23)
--- NOTE | 2018-02-14 23:15 | CARD ---
APPROVED REPORT EXAM: Two-dimensional and M-mode echocardiogram with Doppler and color Doppler. Other Information Quality : GoodRhythm : INDICATION Murmur Syncope RISK FACTORS Hypertension Hyperlipidemia 2D DIMENSIONS IVSd0.9 (0.7-1.1cm)LVDd4.2 (3.9-5.9cm) LVOT Diameter2.0 (1.8-2.4cm)PWd0.7 (0.7-1.1cm) LVDs3.1 (2.5-4.0cm)FS (%) 26.2 % LVEF (%)60.0 (>50%) M-Mode DIMENSIONS RVDd2.28 (2.1-3.2cm)Left Atrium (MM)3.05 (2.5-4.0cm) IVSd0.83 (0.7-1.1cm)Aortic Root2.56 (2.2-3.7cm) LVDd4.57 (4.0-5.6cm)Aortic Cusp Exc.1.39 (1.5-2.0cm) PWd0.79 (0.7-1.1cm)FS (%) 48 % LVDs2.37 (2.0-3.8cm) Aortic Valve AoV Peak Ccsqnvou319.1cm/sAoV VTI56.7cmAO Peak GR.32mmHg LVOT Peak Vujsrmmm701.5cm/sLVOT VTI26.27cmAO Mean GR.15mmHg EDIS (VMAX)1.50lg3MOE (VTI)1.41cm2 Mitral Valve MV E Bqliyiuz09.0cm/sMV A Ahzgncrn586.3cm/sE/A ratio0.8 TDI E/Lateral E'0.0E/Medial E'0.0 Tricuspid Valve TR Peak Jxhkucyn799xi/sTR Peak Gr.81yjAwUJZB04akXp LEFT VENTRICLE The left ventricle is normal size. There is borderline concentric left ventricular hypertrophy. Left ventricle systolic function is normal. The Ejection Fraction is 65-70%. There is normal LV segmental wall motion. Transmitral Doppler flow pattern is Grade I-abnormal relaxation pattern. There is no ventricular septal defect visualized. RIGHT VENTRICLE The right ventricle is normal size. The right ventricular systolic function is normal. ATRIA The left atrium is mildly dilated. The right atrium size is normal. AORTIC VALVE The aortic valve is mildly sclerotic. The aortic valve is tri-cuspid. No aortic regurgitation is present. There is mild to moderate valvular aortic stenosis. Calculated aortic valve area is 1.2 cm2 with maximum pressure gradient of 31 mmHg MITRAL VALVE The mitral valve is normal in structure. There is no evidence of mitral valve prolapse. There is no mitral valve regurgitation noted. TRICUSPID VALVE The tricuspid valve is normal in structure. There is mild tricuspid regurgitation. Right ventricular systolic pressure is estimated at 30-40 mmHg. There is mild pulmonary hypertension. PULMONIC VALVE The pulmonic valve is not well visualized. There is no pulmonic valvular regurgitation. GREAT VESSELS The aortic root is normal in size. The ascending aorta is normal in size. The IVC is normal in size and collapses >50% with inspiration. PERICARDIAL EFFUSION There is no pericardial effusion. <Conclusion> There is borderline concentric left ventricular hypertrophy. Left ventricle systolic function is normal. The Ejection Fraction is 65-70%. There is normal LV segmental wall motion. Transmitral Doppler flow pattern is Grade I-abnormal relaxation pattern. There is mild to moderate valvular aortic stenosis. There is mild pulmonary hypertension.
--- NOTE | 2018-02-15 02:07 | CARD ---
APPROVED REPORT EKG Measurement Heart [id number] <Conclusion> Normal sinus rhythm Normal ECG
[2018-02-15 07:30] LABS: BASO # 0.1 K/uL (0.0-0.2); BASO % 0.8 % (0.0-2.0); EOS # 0.1 K/uL (0.0-0.7); EOS % 1.5 % (0.0-4.0); HEMOGLOBIN 12.6 g/dL (11.0-16.0); LYMPH # 2.5 K/uL (1.0-4.3); LYMPH % 29.2 % (20.0-40.0); MEAN CELL VOLUME 90.4 fL (81.0-99.0); MEAN CORPUSCULAR HEMOGLOBIN 31.2 pg (27.0-31.0); MEAN CORPUSCULAR HGB CONC 34.5 g/dL (33.0-37.0); MEAN PLATELET VOLUME 8.9 fL (7.2-11.7); MONO # 0.6 K/uL (0.0-0.8); MONO % 6.8 % (0.0-10.0); NEUT # 5.3 K/uL (1.8-7.0); NEUT % 61.7 % (50.0-75.0); RBC 4.03 Mil/uL (3.80-5.20); WHITE BLOOD COUNT 8.5 K/uL (4.8-10.8)
[2018-02-15 07:31] VITALS: RESP 20
[2018-02-15 08:05] LABS: ALB/GLOB RATIO 1.1 (1.0-2.1); ALBUMIN 3.6 g/dL (3.5-5.0); ALT/SGPT 17 U/L (9-52); AST/SGOT 29 U/L (14-36); BLOOD UREA NITROGEN 18 mg/dL (7-17); CALCIUM 8.8 mg/dl (8.6-10.4); GFR AFRICAN-AMERICAN > 60; GFR NON-AFRICAN AMERICAN > 60
--- NOTE | 2018-02-15 09:37 | CP.PCM.PN ---
<Kadie Mahoney - Last Filed: 02/15/18 16:13> Subjective - Date & Time of Evaluation Date of Evaluation: 02/15/18 Time of Evaluation: 07:30 - Subjective Subjective: Patient seen and examined at bedside. Patient resting comfortably in bed with no new complaints at this time. Patient walking around without dizziness/ lightheadedness. Patient denies fever, chills, headache, chest pain, palpitations, SOB, abdominal pain, n/v/d/c, calf pain, and LE edema. Objective - Vital Signs/Intake and Output Vital Signs (last 24 hours): Temp Pulse Resp BP Pulse Ox 98.4 F 82 20 130/74 99 02/15/18 07:30 02/15/18 07:30 02/15/18 07:30 02/15/18 07:30 02/15/18 07:30 - Medications Medications: Current Medications Amlodipine Besylate (Norvasc) 5 mg PO DAILY [facility] Last Admin: 02/14/18 09:29 Dose: 5 mg Cephalexin Monohydrate (Keflex) 500 mg PO Q12 [facility] PRN Reason: Protocol Last Admin: 02/14/18 21:23 Dose: 500 mg Heparin Sodium (Porcine) (Heparin) 5,000 units SC Q12 [facility] Last Admin: 02/14/18 21:23 Dose: 5,000 units Home Med (Patient's Own Medication) 1 tab PO HS [facility] Last Admin: 02/14/18 21:23 Dose: 1 tab Losartan Potassium (Cozaar) 50 mg PO DAILY [facility] Last Admin: 02/14/18 09:29 Dose: 50 mg Saccharomyces Boulardii (Florastor) 250 mg PO BID [facility] Last Admin: 02/14/18 17:33 Dose: 250 mg - Labs Labs: 02/15/18 07:19 02/15/18 07:19 PT 11.7 SECONDS (9.7-12.2) 02/12/18 12:59 INR 1.0 02/12/18 12:59 APTT 29 SECONDS (21-34) 02/12/18 12:59 - Additional Findings Additional findings: - Constitutional Appears: Non-toxic, No Acute Distress - Head Exam Head Exam: ATRAUMATIC, NORMAL INSPECTION, NORMOCEPHALIC - Eye Exam Eye Exam: EOMI, Normal appearance, PERRL - ENT Exam ENT Exam: Mucous Membranes Moist - Respiratory Exam Respiratory Exam: Clear to Ausculation Bilateral, NORMAL BREATHING PATTERN - Cardiovascular Exam Cardiovascular Exam: REGULAR RHYTHM, +S1, +S2, Murmur (SAMANTHA heard best at the right 2nd intercostal space ) - GI/Abdominal Exam GI & Abdominal Exam: Soft, Normal Bowel Sounds. absent: Distended, Tenderness - Extremities Exam Extremities Exam: Normal Inspection. absent: Calf Tenderness, Pedal Edema - Neurological Exam Neurological Exam: Alert, Awake, Oriented x3 - Psychiatric Exam Psychiatric exam: Normal Affect, Normal Mood - Skin Skin Exam: Dry, Intact, Normal Color, Warm Assessment and Plan - Assessment and Plan (Free Text) Plan: Syncopal episode * Orthostatic BP within normal limits; no change in SBP > 20 or DBP >10 * H&H stable * Leukocytosis & UA with +Leuk esterase * urine culture: called micro and likely contaminated; will repeat * blood cultures negative * CT head: negative for intracranial abnormality * CXR: negative * Dr. Valverde consulted * Having 4-5 beat runs of VTach overnight on 02/12- and * Echo 02/14: EF 65-70%, LVH, mild to moderate aortic stenosis, grade 1 abnormal relaxation pattern, mild pulmonary hypertension (see full report) * Carotid doppler 02/14: * Tilt table testing 02/15: * BNP 234 * ALEXIS negative x3 * TSH 2.40, Free T4 1.06 * AM cortisol: 10.2 * Dr. Min consulted (neuro), help appreciated * f/u EEG * f/u MRI without contrast Meds * Keflex 500 mg PO Q12 Systolic ejection murmur * Dr. Valverde consulted, help appreciated * Echo 02/14: EF 65-70%, LVH, mild to moderate aortic stenosis, grade 1 abnormal relaxation pattern, mild pulmonary hypertension (see full report) Hyperglycemia * Glucose 209 on admission * HbA1c 5.7 Hypokalemia - resolved * Monitor and replace as needed Elevated Total Bilirubin - resolved * direct bilirubin 0.3 * AST/ALT WNL Hypertension * Continue home losartan 50 mg daily * Continue home amlodipine 5 mg daily Hyperlipidemia * On Pravastatin 20 mg daily - brought from home because did not want to change to Crestor * Lipid panel: Trig 47, Chol 158, LDL 84, HDL 63 Prophylaxis * Heparin * GI prophylaxis not indicated <Fazal Robins - Last Filed: 02/15/18 16:27> Objective - Vital Signs/Intake and Output Vital Signs (last 24 hours): Temp Pulse Resp BP Pulse Ox 98.4 F 82 20 130/74 99 02/15/18 07:30 02/15/18 09:00 02/15/18 07:30 02/15/18 07:30 02/15/18 12:54 - Medications Medications: Current Medications Amlodipine Besylate (Norvasc) 5 mg PO DAILY [facility] Last Admin: 02/15/18 10:37 Dose: 5 mg Cephalexin Monohydrate (Keflex) 500 mg PO Q12 [facility] PRN Reason: Protocol Last Admin: 02/15/18 10:32 Dose: 500 mg Heparin Sodium (Porcine) (Heparin) 5,000 units SC Q12 [facility] Last Admin: 02/15/18 10:32 Dose: 5,000 units Home Med (Patient's Own Medication) 1 tab PO HS [facility] Last Admin: 02/14/18 21:23 Dose: 1 tab Losartan Potassium (Cozaar) 50 mg PO DAILY [facility] Last Admin: 02/15/18 10:32 Dose: 50 mg Saccharomyces Boulardii (Florastor) 250 mg PO BID [facility] Last Admin: 02/15/18 10:32 Dose: 250 mg - Labs Labs: 02/15/18 07:19 02/15/18 07:19 PT 11.7 SECONDS (9.7-12.2) 02/12/18 12:59 INR 1.0 02/12/18 12:59 APTT 29 SECONDS (21-34) 02/12/18 12:59 Attending/Attestation - Attestation I have personally seen and examined this patient.: Yes I have fully participated in the care of the patient.: Yes I have reviewed all pertinent clinical information, including history, physical exam and plan: Yes Notes (Text): 02/15/18 16:21 Medical attending: Patient was seen and examined by me. Agree with the above note by the resident The patient was actively walking in the room. Family member present. Patient was very alert, awake, and talkative She has undergone echo, carotids, tilttable, CT scan of head, orthostatic checks Review of telemetry overnight was stable. She did not have any runs of VTAC Or plan is to later discharge the patient today. I will give her primary medical doctor a call thank you Fazal Robins
[2018-02-15] MEDS: Saccharomyces Boulardi 250 mg Cap PO SCH (10:32)
--- NOTE | 2018-02-15 11:39 | VASCLAB ---
PROCEDURE: HISTORY: syncope COMPARISON: None available. TECHNIQUE: Grayscale and duplex Doppler evaluation of the cervical carotid and vertebral arteries were performed. The common carotid, carotid bifurcations and cervical Internal Carotid Artery (ICA) and proximal External Carotid Artery (ECA) were evaluated. The vertebral arteries were evaluated for gross patency and flow direction. Report prepared by Mich Garcia, BS, RVT FINDINGS: RIGHT CAROTID ARTERIES: 1. Common Carotid Artery: No significant focal plaque formation of the right common carotid artery. Maximum Peak Systolic velocity: 87 cm/sec: End-diastolic velocity 32 cm/sec. 2. Carotid Bifurcation: plaque formation. Maximum Peak Systolic velocity: 84 cm/sec: End-diastolic velocity 30 cm/sec. 3. Internal Carotid Artery: Plaque description: 3.1. Proximal Segment: Peak systolic velocity 85 cm/sec: End-diastolic velocity 31 cm/sec - % stenosis 0-15% 3.2. Middle Segment: Peak systolic velocity 79 cm/sec: End-diastolic velocity 28 cm/sec - % stenosis 0-15% 3.3. Distal Segment: Peak systolic velocity 29 cm/sec: End-diastolic velocity 11 cm/sec - % stenosis 0-15% 4. External Carotid Artery: No significant focal plaque formation. Peak systolic velocity 99 cm/sec 5. ICA/CCA Ratio: 1.0 LEFT CAROTID ARTERIES: 1. Common Carotid Artery: No significant focal plaque formation of the left common carotid artery. Maximum Peak Systolic velocity: 125 cm/sec: End-diastolic velocity 28 cm/sec. 2. Carotid Bifurcation: plaque formation. Maximum Peak Systolic velocity: cm/sec: End-diastolic velocity cm/sec. 3. Internal Carotid Artery: Plaque description: 3.1. Proximal Segment: Peak systolic velocity 83 cm/sec: End-diastolic velocity 32 cm/sec - % stenosis 0-15% 3.2. Middle Segment: Peak systolic velocity 125 cm/sec: End-diastolic velocity 33 cm/sec - % stenosis 0-15% 3.3. Distal Segment: Peak systolic velocity 96 cm/sec: End-diastolic velocity 27 cm/sec - % stenosis 0-15% 4. External Carotid Artery: No significant focal plaque formation. Peak systolic velocity 75 cm/sec 5. ICA/CCA Ratio: 1.0 VERTEBRAL ARTERIES: 1. Right Vertebral Artery: The right vertebral artery flow direction is antegrade. 2. Left Vertebral Artery: The left vertebral artery flow direction is antegrade. OTHER FINDINGS: 1. Right Brachial Blood pressure: 120 mmHg. 2. Left Brachial Blood pressure: 122 mmHg. IMPRESSION: RIGHT: Duplex scan does not suggest hemodynamically significant stenosis of the right extracranial carotid arteries. LEFT: Duplex scan does not suggest hemodynamically significant stenosis of the left extracranial carotid arteries.
--- NOTE | 2018-02-15 11:40 | PN ---
DATE: 02/15/2018 NEUROLOGIC PROBLEM: Recurrent syncopal attack with panic episode. PHYSICAL EXAMINATION VITAL SIGNS: Blood pressure 123/74 in lying, sitting 143/84, with standing 139/79, without any significant drop in blood pressure, pulse rate 80, regular. GENERAL: The patient is very comfortably lying down. No episodes of syncopal attack or panic episodes while she is in the hospital. Her examination is unchanged compared to her previous examination. The patient is recommended to have MRI of the brain to rule out any specific pathology for her syncopal attack. The patient also had electroencephalogram, which will be reviewed by me today. Continue the present management. The patient is scheduled to have EP studies today as per the schedule. Jimi Min MD
--- NOTE | 2018-02-15 15:51 | CP.PCM.DIS ---
<Kadie Mahoney - Last Filed: 02/15/18 16:08> Provider - Provider Date of Admission: 02/12/18 15:38 Attending physician: Fazal Robins DO Consults: Dr. Abram Min Time Spent in preparation of Discharge (in minutes): 35 Diagnosis - Discharge Diagnosis (1) Hypokalemia Status: Acute (2) Syncope Status: Acute Hospital Course - Lab Results Lab Results: Micro Results 02/12/18 20:35 Blood Blood Culture - Preliminary NO GROWTH AFTER 48 HOURS 02/12/18 20:35 Blood Blood Culture - Preliminary NO GROWTH AFTER 48 HOURS 02/12/18 21:52 Urine,Clean Catch Urine Culture - Final 10-50,000 CFU/ML. MULTIPLE SPECIES. PROBABLE CONTAMINATION. Most Recent Lab Values WBC 8.5 K/uL (4.8-10.8) 02/15/18 07:19 RBC 4.03 Mil/uL (3.80-5.20) 02/15/18 07:19 Hgb 12.6 g/dL (11.0-16.0) 02/15/18 07:19 Hct 36.4 % (34.0-47.0) 02/15/18 07:19 MCV 90.4 fL (81.0-99.0) 02/15/18 07:19 MCH 31.2 pg (27.0-31.0) H 02/15/18 07:19 MCHC 34.5 g/dL (33.0-37.0) 02/15/18 07:19 RDW 13.0 % (11.5-14.5) 02/15/18 07:19 Plt Count 221 K/uL (130-400) 02/15/18 07:19 MPV 8.9 fL (7.2-11.7) 02/15/18 07:19 Neut % (Auto) 61.7 % (50.0-75.0) 02/15/18 07:19 Lymph % (Auto) 29.2 % (20.0-40.0) 02/15/18 07:19 [place] % (Auto) 6.8 % (0.0-10.0) 02/15/18 07:19 Eos % (Auto) 1.5 % (0.0-4.0) 02/15/18 07:19 Baso % (Auto) 0.8 % (0.0-2.0) 02/15/18 07:19 Neut # (Auto) 5.3 K/uL (1.8-7.0) 02/15/18 07:19 Lymph # (Auto) 2.5 K/uL (1.0-4.3) 02/15/18 07:19 [place] # (Auto) 0.6 K/uL (0.0-0.8) 02/15/18 07:19 Eos # (Auto) 0.1 K/uL (0.0-0.7) 02/15/18 07:19 Baso # (Auto) 0.1 K/uL (0.0-0.2) 02/15/18 07:19 PT 11.7 SECONDS (9.7-12.2) 02/12/18 12:59 INR 1.0 02/12/18 12:59 APTT 29 SECONDS (21-34) 02/12/18 12:59 Sodium 142 mmol/L (132-148) 02/15/18 07:19 Potassium 4.5 mmol/L (3.6-5.2) 02/15/18 07:19 Chloride 106 mmol/L (98-107) 02/15/18 07:19 Carbon Dioxide 26 mmol/L (22-30) 02/15/18 07:19 Anion Gap 15 (10-20) 02/15/18 07:19 BUN 18 mg/dL (7-17) H 02/15/18 07:19 Creatinine 0.8 mg/dL (0.7-1.2) 02/15/18 07:19 Est GFR ( Amer) > 60 02/15/18 07:19 Est GFR (Non-Af Amer) > 60 02/15/18 07:19 POC Glucose (mg/dL) 193 mg/dL (65-110) H 02/12/18 12:24 Random Glucose 86 mg/dL (65-105) 02/15/18 07:19 Hemoglobin A1c 5.7 % (4.2-6.5) 02/13/18 08:42 Calcium 8.8 mg/dl (8.6-10.4) 02/15/18 07:19 Phosphorus 2.7 mg/dL (2.5-4.5) 02/12/18 20:35 Magnesium 1.7 mg/dL (1.6-2.3) 02/12/18 12:59 Total Bilirubin 0.9 mg/dL (0.2-1.3) 02/15/18 07:19 Direct Bilirubin 0.3 mg/dL (0.0-0.4) 02/13/18 08:42 AST 29 U/L (14-36) 02/15/18 07:19 ALT 17 U/L (9-52) 02/15/18 07:19 Alkaline Phosphatase 77 U/L (38-126) 02/15/18 07:19 Total Creatine Kinase 116 U/L (30-135) 02/13/18 01:32 CK-MB (Mass) 0.73 ng/mL (0.0-3.38) 02/13/18 01:32 Troponin I < 0.0120 ng/mL (0.00-0.120) 02/13/18 01:32 NT-Pro-B Natriuret Pep 234 pg/mL (0-900) 02/12/18 20:35 Total Protein 7.0 g/dL (6.3-8.3) 02/15/18 07:19 Albumin 3.6 g/dL (3.5-5.0) 02/15/18 07:19 Globulin 3.3 gm/dL (2.2-3.9) 02/15/18 07:19 Albumin/Globulin Ratio 1.1 (1.0-2.1) 02/15/18 07:19 Triglycerides 47 mg/dL (0-149) D 02/12/18 20:35 Cholesterol 158 mg/dL (0-199) 02/12/18 20:35 LDL Cholesterol Direct 84 mg/dL (0-129) 02/12/18 20:35 HDL Cholesterol 63 mg/dL (30-70) 02/12/18 20:35 Free T4 1.06 ng/dL (0.78-2.19) 02/13/18 08:42 TSH 3rd Generation 2.40 mIU/L (0.46-4.68) 02/13/18 08:42 Cortisol AM Sample 10.2 ug/dL (4.46-22.7) 02/14/18 06:38 Urine Color Yellow (YELLOW) 02/12/18 15:09 Urine Clarity Hazy (Clear) 02/12/18 15:09 Urine pH 7.0 (5.0-8.0) 02/12/18 15:09 Ur Specific [place] 1.012 (1.003-1.030) 02/12/18 15:09 Urine Protein Negative mg/dL (NEGATIVE) 02/12/18 15:09 Urine Glucose (UA) Normal mg/dL (Normal) 02/12/18 15:09 Urine Ketones 1+ mg/dL (NEGATIVE) H 02/12/18 15:09 Urine Blood Negative (NEGATIVE) 02/12/18 15:09 Urine Nitrate Negative (NEGATIVE) 02/12/18 15:09 Urine Bilirubin Negative (NEGATIVE) 02/12/18 15:09 Urine Urobilinogen Normal mg/dL (0.2-1.0) 02/12/18 15:09 Ur Leukocyte Esterase 2+ Phillip/uL (Negative) H 02/12/18 15:09 Urine WBC (Auto) 2 /hpf (0-5) 02/12/18 15:09 Urine RBC (Auto) 2 /hpf (0-3) 02/12/18 15:09 Ur Squamous Epith Cells 6 /hpf (0-5) H 02/12/18 15:09 Urine Bacteria Rare (<OCC) 02/12/18 15:09 Hyaline Casts 11-20 /lpf (0-2) H 02/12/18 15:09 - Hospital Course Hospital Course: Upon admission: Patient is a 67 year old female with past medical history of HTN, HLD, Rosacea, and syncopal episodes, who presents to the ED s/p syncopal episode. Patient says she was outside gardening when her asked her to come look at a leaking pipe in the cold basement. Patient says when he was showing her the pipe she started feeling dizzy so her took her back upstairs and outside to get some fresh air. Patient says she sat down on the front door step and then passed out. witnessed the syncopal episode and caught the patient so she did not hit her head. Patient was unconscious for about 5 seconds before she began to wake back up. Patient says when she woke up she had weakness and numbness in her hands up the her elbows, bilaterally. Patient says she become nauseous and had one episode of nonbloody, nonbilious vomiting when she arrived at the ED. She denies associated diaphoresis, headache, changes in vision or hearing, chest pain, palpitations, SOB, cough, abdominal pain, diarrhea, constipation, hematochezia, melena, leg pain, leg swelling, back pain , and recent travel. Patient also admits to 6 days of dysuria. She denies increased urinary frequency, fever, and chills. Hospital course: Patient was admitted for syncope to r/o cardiac and neurological causes, especially given patient's heart murmur on exam. Dr. Valverde was consulted who also consulted Dr. Min. Patient had the following imaging/tests done: Orthostatic BP within normal limits; no change in SBP > 20 or DBP >10 CT head: negative for intracranial abnormality CXR: negative Echo 02/14: EF 65-70%, LVH, mild to moderate aortic stenosis, grade 1 abnormal relaxation pattern, mild pulmonary hypertension (see full report) Carotid doppler 02/14: no stenosis seen Tilt table testing 02/15: negative TSH 2.40, Free T4 1.06 AM cortisol: 10.2 EEG: negative Patient was treated with Keflex for UTI. Upon discharge: Patient clear for discharge per Dr. Robins. Patient was given the following instructions: Please follow up with your primary care provider within 1 week of discharge. Please follow up with the herbarium curator, Dr. Valverde, for routine follow up of findings on your echocardiogram. Please note that this is a summary of events. For more details please see complete medical record. Discharge Exam - Head Exam Head Exam: ATRAUMATIC, NORMAL INSPECTION, NORMOCEPHALIC - Additional Findings Additional findings: Please see today's progress note Discharge Plan - Follow Up Plan Condition: GOOD Disposition: HOME/ ROUTINE Instructions: Heart Healthy Diet, Hypokalemia (DC), Tilt Table Test, Syncope ( Fainting) (DC), High Cholesterol (DC) Additional Instructions: Please follow up with your primary care provider within 1 week of discharge. Please follow up with the herbarium curator, Dr. Valverde, for routine follow up of findings on your echocardiogram. Referrals: Karen Pantoja MD [Staff Provider] - <Fazal Robins - Last Filed: 02/15/18 16:40> Provider - Provider Date of Admission: 02/12/18 15:38 Attending physician: Fazal Robins, formerly [facility] Hospital Course - Lab Results Lab Results: Micro Results 02/12/18 20:35 Blood Blood Culture - Preliminary NO GROWTH AFTER 48 HOURS 02/12/18 20:35 Blood Blood Culture - Preliminary NO GROWTH AFTER 48 HOURS 02/12/18 21:52 Urine,Clean Catch Urine Culture - Final 10-50,000 CFU/ML. MULTIPLE SPECIES. PROBABLE CONTAMINATION. Most Recent Lab Values WBC 8.5 K/uL (4.8-10.8) 02/15/18 07:19 RBC 4.03 Mil/uL (3.80-5.20) 02/15/18 07:19 Hgb 12.6 g/dL (11.0-16.0) 02/15/18 07:19 Hct 36.4 % (34.0-47.0) 02/15/18 07:19 MCV 90.4 fL (81.0-99.0) 02/15/18 07:19 MCH 31.2 pg (27.0-31.0) H 02/15/18 07:19 MCHC 34.5 g/dL (33.0-37.0) 02/15/18 07:19 RDW 13.0 % (11.5-14.5) 02/15/18 07:19 Plt Count 221 K/uL (130-400) 02/15/18 07:19 MPV 8.9 fL (7.2-11.7) 02/15/18 07:19 Neut % (Auto) 61.7 % (50.0-75.0) 02/15/18 07:19 Lymph % (Auto) 29.2 % (20.0-40.0) 02/15/18 07:19 [place] % (Auto) 6.8 % (0.0-10.0) 02/15/18 07:19 Eos % (Auto) 1.5 % (0.0-4.0) 02/15/18 07:19 Baso % (Auto) 0.8 % (0.0-2.0) 02/15/18 07:19 Neut # (Auto) 5.3 K/uL (1.8-7.0) 02/15/18 07:19 Lymph # (Auto) 2.5 K/uL (1.0-4.3) 02/15/18 07:19 [place] # (Auto) 0.6 K/uL (0.0-0.8) 02/15/18 07:19 Eos # (Auto) 0.1 K/uL (0.0-0.7) 02/15/18 07:19 Baso # (Auto) 0.1 K/uL (0.0-0.2) 02/15/18 07:19 PT 11.7 SECONDS (9.7-12.2) 02/12/18 12:59 INR 1.0 02/12/18 12:59 APTT 29 SECONDS (21-34) 02/12/18 12:59 Sodium 142 mmol/L (132-148) 02/15/18 07:19 Potassium 4.5 mmol/L (3.6-5.2) 02/15/18 07:19 Chloride 106 mmol/L (98-107) 02/15/18 07:19 Carbon Dioxide 26 mmol/L (22-30) 02/15/18 07:19 Anion Gap 15 (10-20) 02/15/18 07:19 BUN 18 mg/dL (7-17) H 02/15/18 07:19 Creatinine 0.8 mg/dL (0.7-1.2) 02/15/18 07:19 Est GFR ( Amer) > 60 02/15/18 07:19 Est GFR (Non-Af Amer) > 60 02/15/18 07:19 POC Glucose (mg/dL) 193 mg/dL (65-110) H 02/12/18 12:24 Random Glucose 86 mg/dL (65-105) 02/15/18 07:19 Hemoglobin A1c 5.7 % (4.2-6.5) 02/13/18 08:42 Calcium 8.8 mg/dl (8.6-10.4) 02/15/18 07:19 Phosphorus 2.7 mg/dL (2.5-4.5) 02/12/18 20:35 Magnesium 1.7 mg/dL (1.6-2.3) 02/12/18 12:59 Total Bilirubin 0.9 mg/dL (0.2-1.3) 02/15/18 07:19 Direct Bilirubin 0.3 mg/dL (0.0-0.4) 02/13/18 08:42 AST 29 U/L (14-36) 02/15/18 07:19 ALT 17 U/L (9-52) 02/15/18 07:19 Alkaline Phosphatase 77 U/L (38-126) 02/15/18 07:19 Total Creatine Kinase 116 U/L (30-135) 02/13/18 01:32 CK-MB (Mass) 0.73 ng/mL (0.0-3.38) 02/13/18 01:32 Troponin I < 0.0120 ng/mL (0.00-0.120) 02/13/18 01:32 NT-Pro-B Natriuret Pep 234 pg/mL (0-900) 02/12/18 20:35 Total Protein 7.0 g/dL (6.3-8.3) 02/15/18 07:19 Albumin 3.6 g/dL (3.5-5.0) 02/15/18 07:19 Globulin 3.3 gm/dL (2.2-3.9) 02/15/18 07:19 Albumin/Globulin Ratio 1.1 (1.0-2.1) 02/15/18 07:19 Triglycerides 47 mg/dL (0-149) D 02/12/18 20:35 Cholesterol 158 mg/dL (0-199) 02/12/18 20:35 LDL Cholesterol Direct 84 mg/dL (0-129) 02/12/18 20:35 HDL Cholesterol 63 mg/dL (30-70) 02/12/18 20:35 Free T4 1.06 ng/dL (0.78-2.19) 02/13/18 08:42 TSH 3rd Generation 2.40 mIU/L (0.46-4.68) 02/13/18 08:42 Cortisol AM Sample 10.2 ug/dL (4.46-22.7) 02/14/18 06:38 Urine Color Yellow (YELLOW) 02/12/18 15:09 Urine Clarity Hazy (Clear) 02/12/18 15:09 Urine pH 7.0 (5.0-8.0) 02/12/18 15:09 Ur Specific [place] 1.012 (1.003-1.030) 02/12/18 15:09 Urine Protein Negative mg/dL (NEGATIVE) 02/12/18 15:09 Urine Glucose (UA) Normal mg/dL (Normal) 02/12/18 15:09 Urine Ketones 1+ mg/dL (NEGATIVE) H 02/12/18 15:09 Urine Blood Negative (NEGATIVE) 02/12/18 15:09 Urine Nitrate Negative (NEGATIVE) 02/12/18 15:09 Urine Bilirubin Negative (NEGATIVE) 02/12/18 15:09 Urine Urobilinogen Normal mg/dL (0.2-1.0) 02/12/18 15:09 Ur Leukocyte Esterase 2+ [place]/uL (Negative) H 02/12/18 15:09 Urine WBC (Auto) 2 /hpf (0-5) 02/12/18 15:09 Urine RBC (Auto) 2 /hpf (0-3) 02/12/18 15:09 Ur Squamous Epith Cells 6 /hpf (0-5) H 02/12/18 15:09 Urine Bacteria Rare (<OCC) 02/12/18 15:09 Hyaline Casts 11-20 /lpf (0-2) H 02/12/18 15:09 Attending/Attestation - Attestation I have personally seen and examined this patient.: Yes I have fully participated in the care of the patient.: Yes I have reviewed all pertinent clinical information, including history, physical exam and plan: Yes Notes (Text): 02/15/18 16:38 Medical attending: Patient was seen and examined by me. Agree with the above note by the resident The patient has been actively pacing around in her room. Family present, she felt well. She has not had any episodes of dizziness, and also no chest pain, no shortness of breath. I spoke with the patient, family, as well as the patient's PMD. Family understand they need to follow up with the PMD. thank you Fazal Robins
[2018-02-15 16:50] VITALS: BP 146/82; PULSE 88; TEMP 98.2; O2SAT 100
--- NOTE | 2018-02-15 21:50 | CARDCATH ---
PROCEDURE DATE: 02/15/2018 PROCEDURES: Tilt-table test. TEACHING AIDE: Antonio Browne MD INDICATIONS: Syncope. DESCRIPTION OF PROCEDURE: The patient was put on the table and tilted at 30 degrees for 5 minutes and 60 degrees for 15 minutes. The blood pressure and heart rate response were monitored every 3 minutes. On review of her results, there was a slow drop in blood pressure of 14 mmHg during the test and a 10-beat per minute drop in heart rate noted. The patient was asymptomatic throughout the test. IMPRESSION: Negative tilt-table test. Appropriate heart rate and blood pressure response to tilt-table test. The patient was asymptomatic during and after the test. Antonio Browne MD
--- NOTE | 2018-02-17 10:17 | EEG ---
DATE: 02/14/2018 This is a 16-channel electroencephalogram of awake and drowsy adult. During the study, photic stimulation was performed. Hyperventilation was not performed. The resting electroencephalogram consists of 20 to 30 mV diffuse 9 to 11 Hz alpha activity seen in bilateral parietal and occipital leads. This activity is symmetrically attenuated with eye opening. Some frontal and temporal muscle artifact contaminated the background rhythm. Later these activities slowed down to form 2 to 3 Hz delta activities seen intermittently which is consistent with early drowsiness. The photic stimulation did not evoke driving response noted at 2 to 20 Hz. IMPRESSION: This is a normal electroencephalogram of awake and drowsy adult. During the study, neither electroencephalographic paroxysmal activities nor focal slowing noted. Jimi Min MD
== END 2018-02-15 17:09 | disposition home or self-care (01) ==
LOC: C.ER 12:10 → C.9E 15:38 → C.6T 16:09
PROVIDERS: ADMIT Hospitalist; ATTEND Hospitalist
DX: R55 Syncope and collapse (principal); E87.6 Hypokalemia; I10 Essential (primary) hypertension; E78.5 Hyperlipidemia, unspecified; L71.9 Rosacea, unspecified; Z87.891 Personal history of nicotine dependence; Z82.49 Family history of ischemic heart disease and other diseases of the circulatory system; Z83.42 Family history of familial hypercholesterolemia; R73.9 Hyperglycemia, unspecified; N39.0 Urinary tract infection, site not specified; I35.0 Nonrheumatic aortic (valve) stenosis
CPT/HCPCS: 36415; 70450; 71045; 80053; 80061; 81001; 82248; 82533; 82550; 82553; 82948; 83036; 83735; 83880; 84100; 84439; 84443; 84484; 85025; 85610; 85730; 87040; 87086; 93005; 93306; 93660; 93880; 95812; 96361; 96372; 96374; 96375; 97116; 97161; 99285; G0378; G8978; G8979; J1200; J1644; J2405; J7030; J7040